=== PATIENT | female | born 1985 | race Caucasian/White ===

== ENCOUNTER 2022-08-28 13:04 | Emergency (ER) | payer OTHER ==
[~2022-08-28] VITALS: Ht 144.8 cm; Wt 50.8 kg
== END 2022-08-28 15:08 | disposition home or self-care (01) ==
LOC: ER 13:04
DX: S61.213A Laceration without foreign body of left middle finger without damage to nail, initial encounter (principal); W22.8XXA Striking against or struck by other objects, initial encounter
CPT/HCPCS: 12001; 73130; 90471; 90714; 96372-59; 99283-25; J1885

== ENCOUNTER 2023-02-13 08:07 | Day surgery (SDC) | payer OTHER ==
[~2023-02-13] VITALS: Ht 144.8 cm; Wt 49.4 kg
--- NOTE | 2023-02-13 09:37 | NUR ---
02/13/23 0937 Elena Johnston ROPIVACAINE 0.5% 20 MLS MIXED & VERIFIED W/ EPI 0.20 ML (1MG/ML) PER ORDER TO MAKE ROPIVACAINE 0.5% 1:200,000 FOR INJECTION AT INCISION SITE BY DR VALENTINE. MULTI DOSE VIAL. 10 MLS INJECTED. ARNOLD AREA PREPPED BY AMELIE CHIU WITH BETADINE SOLUTION ABDOMINAL AREA PREPPED BY ELENA CHIU WITH DURA PREP
--- NOTE | 2023-02-13 11:19 | NUR ---
02/13/23 1119 Liz Munoz PT IS EATING AND APPEARS TO BE RESTING MORE COMFORTABLY. MITZY NAVA IS AT BEDSIDE. GAVE PT A PO PAIN MEDICATION AND PT IS NOT CURRENTLY EXPERIENCING NAUSEA.
[2023-02-13 11:36] VITALS: BP 103/66
== END 2023-02-13 11:44 | disposition home or self-care (01) ==
LOC: ORSCSDS 08:07
PROVIDERS: Obstetrics & Gynecology
PROC: 0UT74ZZ Resection of Bilateral Fallopian Tubes, Percutaneous Endoscopic Approach (ICD-10-PCS; principal; 2023-02-13 09:30)
DX: Z30.2 Encounter for sterilization (principal); F17.210 Nicotine dependence, cigarettes, uncomplicated; N80.30 Endometriosis of pelvic peritoneum, unspecified
CPT/HCPCS: 88302; A9270; J0171; J0690; J2795; J3010; J7120

== ENCOUNTER 2023-03-04 09:02 | Day surgery (SDC) | payer OTHER ==
[~2023-03-04] VITALS: Ht 152.4 cm; Wt 49.0 kg
[2023-03-04] MEDS ORDERED: MERIBIN5 MG PO (10:39)
[2023-03-04] MEDS ORDERED: FISH OIL 1,2001 EAC7 PO (10:40)
--- NOTE | 2023-03-04 14:15 | NUR ---
PT AMBULATES TO RESTROOM AND BACK WITHOUT DIFF. VSS. NADN. PT IV DC'D. CATH INTACT. PRESSURE DSG APPLIED. NO BLEEDING NOTED. PT R FEMORAL VEIN REMAINS STABLE. NO BLEEDING OR HEMATOMA NOTED. PT VERBALIZES UNDERSTANDING WRITTEN AND VERBAL INSTRUCTIONS. DENIES QUESTIONS. PT DC TO HOME VIA S/O BY HARITHA
== END 2023-03-04 14:15 | disposition home or self-care (01) ==
LOC: MHTC 09:02
DX: N94.89 Other specified conditions associated with female genital organs and menstrual cycle (principal); G40.909 Epilepsy, unspecified, not intractable, without status epilepticus; F12.99 Cannabis use, unspecified with unspecified cannabis-induced disorder; Z87.891 Personal history of nicotine dependence
CPT/HCPCS: 37241; 75774; 75822; 75825; 75833; 76937; 99152; 99153; A9270; C1769; C1887; C1894; J1644; J2250; J3010; J7030; Q9967

== ENCOUNTER 2023-11-27 09:41 | Day surgery (SDC) | payer OTHER ==
[~2023-11-27] VITALS: Ht 147.3 cm; Wt 50.8 kg
[2023-11-27] VITALS (8 sets, daily range): BP systolic 106–115; BP diastolic 68–87
[~2023-11-27 09:41] MED LIST: ACET500 PO; B COMPLEX VITAMINS; FISH OIL 1,2001 EAC7 PO; Heparin Sodium 1000 Units/ML 10ML MDV ONE; IBUP400 PO; MERIBIN5 MG PO; NS 1,000 ML IV ONE
[2023-11-27] MEDS ORDERED: FentaNYL Citrate 50 MCG/ML 2 ML Injection ONE ×2 (11:17→11:20)
[2023-11-27] MEDS ORDERED: NS 1,000 ML IV ONE (11:17)
[2023-11-27] MEDS ORDERED: Midazolam HCl 1MG / ML 2ML Vial ONE ×2 (11:17→11:19)
--- NOTE | 2023-11-27 13:53 | NUR ---
PT RETURNED TO RECOVERY ROOM IN BED. RIGHT FEMORAL VEIN SITE SOFT WITH NO HEMATOMA, NO BLEEDING AND INTACT DRESSING WITH SLIGHT TRACK OOZING. PT STATES RIGHT GROIN SORENESS (DR MAXWELL AWARE). PT EATING LUNCH; PT'S SO IN ROOM CALL LIGHT IN REACH.
--- NOTE | 2023-11-27 14:10 | NUR ---
NO CHANGES TO R FEM GROIN SITE.
--- NOTE | 2023-11-27 14:45 | NUR ---
DISCHARGE INSTRUCTIONS REVIEWED ALL QUESTIONS ANSWERED. 20 G IV DISCONTINUED FROM LEFT AC WITH INTACT CANNULA. PT ESCORTED OUT VIA WHEELCHAIR ESCORT.
== END 2023-11-27 14:59 | disposition home or self-care (01) ==
LOC: MHTC 09:41
DX: N94.89 Other specified conditions associated with female genital organs and menstrual cycle (principal); R10.2 Pelvic and perineal pain; G89.29 Other chronic pain; Z87.891 Personal history of nicotine dependence; Z88.6 Allergy status to analgesic agent; Z79.899 Other long term (current) drug therapy
CPT/HCPCS: 37241; 75822; 76937; 99152; 99153; C1769; C1887; C1894; J1644; J2250; J3010; J7030; Q9967

== ENCOUNTER → 2024-03-11 | Outpatient (CLI) | payer OTHER ==
[~2024-03-11] MED LIST changes: -Heparin Sodium 1000 Units/ML 10ML MDV ONE; -NS 1,000 ML IV ONE
[2024-03-11 19:51] LABS: BASOPHILS ABSOLUTE AUTO 0.03 K/mm3 (0.00-0.23); BASOPHILS PERCENT AUTO 1 % (0-2); EOSINOPHILS ABSOLUTE AUTO 0.15 K/mm3 (0.00-0.68); EOSINOPHILS PERCENT AUTO 3 % (0-6); Hematocrit 39.6 % (33.0-51.0); Hemoglobin 13.2 g/dL (11.5-16.0); IMMATURE GRAN ABSOLUTE AUTO 0.02 K/mm3 (0.00-0.10); IMMATURE GRAN PERCENT AUTO 0 % (0-1); LYMPHOCYTES ABSOLUTE AUTO 1.79 K/mm3 (0.84-5.20); LYMPHOCYTES PERCENT AUTO 31 % (21-46); MONOCYTES ABSOLUTE AUTO 0.44 K/mm3 (0.16-1.47); MONOCYTES PERCENT AUTO 8 % (4-13); Mean Corpuscular HGB 30.6 pg (26.0-34.0); Mean Corpuscular HGB Conc 33.3 g/dL (31.5-36.5); Mean Corpuscular Volume 92 fL (80-100); Mean Platelet Volume 8.6 fL (9.1-12.4); NEUTROPHILS ABSOLUTE AUTO 3.35 K/mm3 (1.96-9.15); NEUTROPHILS PERCENT AUTO 58 % (41-73); Platelet Count 288 K/mm3 (150-400); RDW Coefficient Variation 11.4 % (11.7-14.2); RDW Standard Deviation 38.8 fL (35.1-46.3); Red Blood Cell Count 4.31 M/mm3 (3.80-5.20); White Blood Cell Count 5.78 K/mm3 (4.00-11.30)
[2024-03-11 20:48] LABS: Percent Saturation 61.3 % (15.0-50.0); Thyroid Stimulating Hormone 0.835 uIU/mL (0.360-4.800)
== END ==
LOC: LAB 18:38 → LAB SHORT 18:38
PROVIDERS: Nurse Practitioner Family
DX: J20.9 Acute bronchitis, unspecified (principal)
CPT/HCPCS: 83540; 83550; 84443; 85025

== ENCOUNTER → 2024-04-07 | Outpatient (CLI) | payer OTHER ==
[2024-04-07 18:59] LABS: BASOPHILS ABSOLUTE AUTO 0.02 K/mm3 (0.00-0.23); BASOPHILS PERCENT AUTO 0 % (0-2); EOSINOPHILS ABSOLUTE AUTO 0.08 K/mm3 (0.00-0.68); EOSINOPHILS PERCENT AUTO 1 % (0-6); Hematocrit 38.1 % (33.0-51.0); Hemoglobin 13.1 g/dL (11.5-16.0); IMMATURE GRAN ABSOLUTE AUTO 0.03 K/mm3 (0.00-0.10); IMMATURE GRAN PERCENT AUTO 0 % (0-1); LYMPHOCYTES ABSOLUTE AUTO 1.55 K/mm3 (0.84-5.20); LYMPHOCYTES PERCENT AUTO 22 % (21-46); MONOCYTES ABSOLUTE AUTO 0.41 K/mm3 (0.16-1.47); MONOCYTES PERCENT AUTO 6 % (4-13); Mean Corpuscular HGB 31.7 pg (26.0-34.0); Mean Corpuscular HGB Conc 34.4 g/dL (31.5-36.5); Mean Corpuscular Volume 92 fL (80-100); Mean Platelet Volume 8.8 fL (9.1-12.4); NEUTROPHILS PERCENT AUTO 71 % (41-73); Platelet Count 323 K/mm3 (150-400); RDW Coefficient Variation 12.4 % (11.7-14.2); RDW Standard Deviation 41.8 fL (35.1-46.3); Red Blood Cell Count 4.13 M/mm3 (3.80-5.20); White Blood Cell Count 7.09 K/mm3 (4.00-11.30)
[2024-04-07 20:08] LABS: Percent Saturation 81.6 % (15.0-50.0)
== END | disposition home or self-care (01) ==
LOC: LAB SHORT 13:00 → LAB 13:00
PROVIDERS: Internal Medicine Hematology & Oncology
DX: E83.119 Hemochromatosis, unspecified (principal)
CPT/HCPCS: 82728; 83540; 83550; 85025

== ENCOUNTER → 2024-05-24 | Outpatient (CLI) | payer OTHER ==
[2024-05-24 18:48] LABS: BASOPHILS ABSOLUTE AUTO 0.03 K/mm3 (0.00-0.23); BASOPHILS PERCENT AUTO 0 % (0-2); EOSINOPHILS PERCENT AUTO 1 % (0-6); Hematocrit 37.4 % (33.0-51.0); Hemoglobin 12.7 g/dL (11.5-16.0); IMMATURE GRAN ABSOLUTE AUTO 0.01 K/mm3 (0.00-0.10); IMMATURE GRAN PERCENT AUTO 0 % (0-1); LYMPHOCYTES PERCENT AUTO 21 % (21-46); MONOCYTES ABSOLUTE AUTO 0.47 K/mm3 (0.16-1.47); MONOCYTES PERCENT AUTO 7 % (4-13); Mean Corpuscular HGB 32.4 pg (26.0-34.0); Mean Corpuscular Volume 95 fL (80-100); Mean Platelet Volume 8.7 fL (9.1-12.4); NEUTROPHILS ABSOLUTE AUTO 4.98 K/mm3 (1.96-9.15); NEUTROPHILS PERCENT AUTO 70 % (41-73); Platelet Count 316 K/mm3 (150-400); RDW Coefficient Variation 12.1 % (11.7-14.2); RDW Standard Deviation 42.1 fL (35.1-46.3); Red Blood Cell Count 3.92 M/mm3 (3.80-5.20); White Blood Cell Count 7.09 K/mm3 (4.00-11.30)
[2024-05-24 19:29] LABS: Alanine Aminotransfer (ALT/SGP 27 U/L (12-78); Albumin, Blood 3.6 g/dL (3.4-5.0); Albumin/Globulin Ratio 1.1 (0.8-1.8); Alk Phos 56 U/L (50-136); Anion Gap 8 mmol/L (3-11); Aspartate Aminotrans (AST/SGOT 16 U/L (12-37); Bilirubin, Total 0.3 mg/dL (0.1-1.0); Blood Urea Nitrogen 10 mg/dL (8-24); CHOL/HDL RATIO 2.5; CO2, Blood 27 mmol/L (21-32); Chloride, Blood 108 mmol/L (98-108); Cholesterol 185 mg/dL (50-200); Globulin, Blood 3.4 g/dL (2.2-4.0); Glucose, Blood 111 mg/dL (70-99); HDL Cholesterol 74 mg/dL (>39); Iron Serum 101 ug/dL (50-170); LDL/HDL RATIO 1.2; Low Density Lipoprotein Chol 90 mg/dL (0-110); Percent Saturation 32.4 % (15.0-50.0); Sodium, Blood 139 mmol/L (136-145); Total Iron Binding Capacity 312 ug/dL (250-450); Triglycerides 107 mg/dL (30-160); Very Low Density Lipoprot Chol 21 mg/dL (6-32)
[2024-05-24 19:32] LABS: Creatinine, Blood 0.45 mg/dL (0.40-1.00); Glomerular Filtration Rate 125 (60-)
== END | disposition home or self-care (01) ==
LOC: LAB SHORT 17:36 → LAB 17:36
PROVIDERS: Family Medicine
DX: Z00.01 Encounter for general adult medical examination with abnormal findings (principal); E83.118 Other hemochromatosis
CPT/HCPCS: 80053; 80061; 83540; 83550; 85025

== ENCOUNTER → 2024-10-19 | Outpatient (CLI) | payer OTHER ==
[2024-10-19 19:29] LABS: BASOPHILS ABSOLUTE AUTO 0.03 K/mm3 (0.00-0.23); BASOPHILS PERCENT AUTO 0 % (0-2); EOSINOPHILS ABSOLUTE AUTO 0.18 K/mm3 (0.00-0.68); EOSINOPHILS PERCENT AUTO 2 % (0-6); Hematocrit 38.8 % (33.0-51.0); IMMATURE GRAN ABSOLUTE AUTO 0.02 K/mm3 (0.00-0.10); IMMATURE GRAN PERCENT AUTO 0 % (0-1); LYMPHOCYTES ABSOLUTE AUTO 2.17 K/mm3 (0.84-5.20); LYMPHOCYTES PERCENT AUTO 28 % (21-46); MONOCYTES ABSOLUTE AUTO 0.54 K/mm3 (0.16-1.47); MONOCYTES PERCENT AUTO 7 % (4-13); Mean Corpuscular HGB 31.4 pg (26.0-34.0); Mean Corpuscular HGB Conc 33.5 g/dL (31.5-36.5); Mean Corpuscular Volume 94 fL (80-100); Mean Platelet Volume 8.5 fL (9.1-12.4); NEUTROPHILS ABSOLUTE AUTO 4.78 K/mm3 (1.96-9.15); NEUTROPHILS PERCENT AUTO 62 % (41-73); Platelet Count 320 K/mm3 (150-400); RDW Coefficient Variation 12.1 % (11.7-14.2); RDW Standard Deviation 41.3 fL (35.1-46.3); Red Blood Cell Count 4.14 M/mm3 (3.80-5.20); White Blood Cell Count 7.72 K/mm3 (4.00-11.30)
[2024-10-19 19:49] LABS: Albumin, Blood 4.1 g/dL (3.4-5.0); Albumin/Globulin Ratio 1.5 (0.8-1.8); Bilirubin, Total 0.3 mg/dL (0.1-1.0); Bun/Creatinine Ratio 17.6 (12.0-20.0); Calcium, Blood 8.3 mg/dL (8.5-10.1); Creatinine, Blood 0.57 mg/dL (0.40-1.00); Globulin, Blood 2.8 g/dL (2.2-4.0); Percent Saturation 30.5 % (15.0-50.0); Phosphorus, Blood 3.2 mg/dL (2.5-4.9); Potassium, Blood 3.9 mmol/L (3.5-5.5); Total Protein, Blood 6.9 g/dL (6.4-8.2)
== END ==
LOC: LAB 16:52 → LAB SHORT 16:52
PROVIDERS: Internal Medicine Hematology & Oncology
DX: E83.119 Hemochromatosis, unspecified (principal)
CPT/HCPCS: 80053; 82728; 83540; 83550; 84100; 85025